=== PATIENT | male | born 1965 | race Caucasian/White ===

== ENCOUNTER 2019-09-29 20:50 | Inpatient (IN) | payer BC, OTHER ==
[~2019-09-29] VITALS: Ht 167.6 cm; Wt 88.9 kg
[~2019-09-29 20:50] MED LIST: CLEOCIN HCL300 MG PO; IBUPROFEN 800800 M1 PO
[2019-09-29 21:04] VITALS: BP 128/92
[2019-09-29 21:45] LABS: ABSOLUTE NEUTROPHILS 5.2 thou/uL (1.4-8.2); BASOPHILS 1.1 % (0.0-2.0); EOSINOPHILS 5.6 % (0.0-3.0); HEMATOCRIT 46.8 % (42.0-52.0); HEMOGLOBIN 16.5 gm/dL (14.0-18.0); MCH 32.6 pg (26.0-34.0); MCHC 35.2 g/dL (28.0-37.0); MCV 92.4 fL (80.0-100.0); MONOCYTES 9.7 % (1.0-8.0); PLATELET COUNT 360 thou/uL (150-400); POLYS 61.6 % (36.0-66.0); RBC 5.07 mil/uL (4.50-6.00); RDW 13.6 % (10.5-14.5); WBC 8.4 thou/uL (4.0-11.0)
[2019-09-29 21:51] LABS: CALCIUM 9.1 mg/dL (8.5-10.1); POTASSIUM 3.6 mmol/L (3.5-5.1)
[2019-09-29 21:57] LABS: ALBUMIN 3.6 g/dL (3.4-5.0); TOTAL BILIRUBIN 0.3 mg/dL (0.2-1.0); TOTAL PROTEIN 7.5 g/dL (6.4-8.2)
[2019-09-29 22:46] VITALS: BP 128/92
[2019-09-29 23:09] VITALS: BP 128/88
[2019-09-29 23:30] VITALS: BP 136/69
--- NOTE | 2019-09-30 02:15 | NUR ---
PT ARRIVED ON THE UNIT 2330 FROM ER. A&OX4 WITH LLE CELLUITIS FROM SPIDER BITE. DENIES N/V/D. C/O PAIN 11/01 TRAMADOL GIVEN. ADMISSION DONE AND PT ORIENTED TO THE UNIT. IV INTACT AND ABX INFUISING. PT UP AD CARMEN IN THE ROOM. CALL LIGHT IN REACH AND WILL CONT WITH POC TILL EOS.
[2019-09-30 04:35] VITALS: BP 146/74
[2019-09-30 07:17] LABS: HEMATOCRIT 45.8 % (42.0-52.0); HEMOGLOBIN 15.4 gm/dL (14.0-18.0); MCH 31.4 pg (26.0-34.0); MCHC 33.8 g/dL (28.0-37.0); RBC 4.92 mil/uL (4.50-6.00); RDW 13.5 % (10.5-14.5); WBC 8.8 thou/uL (4.0-11.0)
[2019-09-30 07:24] LABS: CALCIUM 8.6 mg/dL (8.5-10.1); CREATININE 1.1 mg/dL (0.7-1.3); POTASSIUM 3.9 mmol/L (3.5-5.1)
[2019-09-30 07:25] VITALS: BP 127/84
[2019-09-30 14:54] VITALS: BP 132/80
--- NOTE | 2019-09-30 18:41 | NUR ---
CARE ASSUMED AT 0700. A&Ox4. PT HAS NOT COMPLAINED ABOUT PAIN. HE HAS A VERY NERVOUSE NATURE AND SHOWS SIGNS OF ANXIETY. BS FROM MORNING LABS WERE OVER 300 SO MD HAS STARTED PT ON METFORMIN AND A MODERATE SLIDING SCALE. DIET HAS BEEN CHANGE. PENDING A1c RESULTS. PT WAS UPSET ABOUT HIS DIET CHANGE AND NOT BEING ABLE TO SNACK ALL DAY AND WHAT HE WANTED. LORAZEPAM ORDERED FOR BED TIME DUE TO NOT BEING ABLE TO SLEEP LAST NIGHT. NICOTINE PATCH PLACED ON HIS L. ARM WITH NICOTINE WITHDRAWALS. HE IS NOW MORE CALM. L.LOWER LEG CELLULITIS HOT AND NO LONGER DRAINING FLUIDS. MRSA SWAB TAKEN AND SENT TO LAB. DR. SIMS HAS BEEN CONSULTED. FAMILY HAS BEEN UPDATED. CALL LIGHT IN REACH. WILL CONTINUE TO MONITOR. IV PATENT WITH NO REDNESS OR EDEMA. WIDESPREAD HIVE LOOKING RASH ON HIS ARMS.
[2019-09-30 19:21] VITALS: BP 136/79
--- NOTE | 2019-09-30 20:43 | NUR ---
ASSUMED PT CARE AT 1900. BEDSIDE REPORT WAS DONE, PT WAS GETTING VITALS TAKEN BY THE STATUARY PAINTER AT 1921. AROUND 1934, THE AM RN WENT TO THE PTS ROOM AND SAID HE WAS IN THE BATHROOM. AT 1999, THIS NURSE WENT INTO HIS ROOM AND DISCOVERED THE PT WAS NOT IN THE ROOM OR THE BATHROOM. ALL HALLWAYS, STAIRWELLS AND ROOMS WERE INVESTIGATED AND THE PT WAS NO WHERE TO BE FOUND. SECURITY WAS ALERTED AT 2004 AND MANAGER DOMESTIC WAS CALLED AROUND 2009.
--- NOTE | 2019-09-30 23:04 | NUR ---
Called both pt's cell phone and 's phone. Left a message on pt's cell phone. Security searched the premises with no signs of patient. [employer] called and sent to pt's address for a welfare check as the patient did not leave his IV in the room anywere.
[2019-10-02 00:07] LABS: GLYCOHEMOGLOBIN (HGB A1C) 6.5 % (4.8-5.6)
== END 2019-09-30 19:00 | disposition left against medical advice (07) | DRG 603 ==
LOC: ER 20:50 → EROBS 23:31 → 4S 23:33
PROVIDERS: Emergency Medicine; Internal Medicine; Nurse Practitioner Family; ADMIT Internal Medicine; ATTEND Internal Medicine
DX: L03.116 Cellulitis of left lower limb (principal); I10 Essential (primary) hypertension; F17.210 Nicotine dependence, cigarettes, uncomplicated; E11.65 Type 2 diabetes mellitus with hyperglycemia; L98.499 Non-pressure chronic ulcer of skin of other sites with unspecified severity; F41.9 Anxiety disorder, unspecified; F32.9 Major depressive disorder, single episode, unspecified; E66.9 Obesity, unspecified; R21 Rash and other nonspecific skin eruption; Z68.31 Body mass index [BMI] 31.0-31.9, adult; Z79.899 Other long term (current) drug therapy
CPT/HCPCS: 10195